=== PATIENT | male | born 1925 | race Caucasian/White ===

== ENCOUNTER 2016-07-04 16:51 | Emergency (ER) | payer MEDICARE, OTHER ==
[2016-07-04] MEDS ORDERED: methylPREDNISolone Sodium Succinate 125 MG/2 ML SDV IVPUSH ONE (16:54)
[2016-07-04] MEDS ORDERED: Albuterol 0.083% 2.5 MG/3 ML Neb Soln NEB ONE (16:54)
[2016-07-04] MEDS ORDERED: Sodium Chloride 0.9% 10 ML Syringe FLUSH PRN (16:56)
--- NOTE | 2016-07-04 17:24 | EDM.PDOC ---
ED HISTORY OF PRESENT ILLNESS - General Chief Complaint: Respiratory Problem Stated Complaint: sob, chest cold, fever Time Seen by Provider: 07/04/16 17:00 Source of Information: Reports: Patient History Limitations: Reports: No limitations - History of Present Illness INITIAL COMMENTS - FREE TEXT/NARRATIVE: The patient is brought in by from [facility] with their ground transportation with complaint of cough and oxygen desaturation that has increased over the past 2 days. The patient states his cough has increased over the past 2 days and he admits to mild chills as well. He denies fever and lethargy. He denies chest pain and shortness of breath currently but admits to chronic exertional dyspnea. He has a significant cardiac history with CABG more than 20 years ago in [place] and EDELMIRA 5-6 years ago at in [place]. He also has a history of Diabetes, Atrial Fibrillation, Pacemaker for SSS, HTN, and HLD. He also smoked for more than 20 years and quit in the . - Related Data Allergies/ADRs: Allergies Allergy/AdvReac Type Severity Reaction Status Date / Time NSAIDS (Non-Steroidal Allergy Cannot Verified 04/16/16 07:42 Anti-Inflamma Remember sodium phosphate,dibasic Allergy Cannot Verified 04/16/16 07:42 [From Fleet Enema] Remember sodium phosphate,monobasic Allergy Cannot Verified 04/16/16 07:42 [From Fleet Enema] Remember venom-honey bee Allergy Anaphylactic Verified 04/16/16 07:42 [bee venom (honey bee)] Shock CT Dye Allergy Renal Uncoded 04/16/16 07:42 Failure Home Meds: Home Meds Allopurinol [Zyloprim] 100 mg PO DAILY@0600 07/09/13 [History] Carboxymethylcellulos/Glycerin [Refresh Optive] 1 drop EYEBOTH QID 07/09/13 [ History] Finasteride [Proscar] 5 mg PO DAILY@0600 07/09/13 [History] Gabapentin [Neurontin] 300 mg PO BEDTIME 07/09/13 [History] Hydrocodone/Acetaminophen [Hydrocodone-Acetaminophen 5-325] 1 tab PO Q4HR PRN [History] Metolazone 2.5 mg PO Q3D 07/09/13 [History] Metoprolol Tartrate 25 mg PO BID 07/09/13 [History] Nitroglycerin [Nitrostat] 0.4 mg SL ASDIRECTED PRN 07/09/13 [History] Potassium Chloride [Klor-Con M20] 20 meq PO BID 07/09/13 [History] Simvastatin [Zocor] 20 mg PO BEDTIME 07/09/13 [History] lamoTRIgine [LaMICtal] 75 mg PO BID 07/09/13 [History] EPINEPHrine [Epipen] 0.3 mg IM ASDIRECTED PRN 10/18/13 [History] Omeprazole [Prilosec] 20 mg PO BID@0600,1630 10/18/13 [History] Amitriptyline [Elavil] 25 mg PO BEDTIME 07/12/15 [History] Aspirin [Halfprin] 81 mg PO DAILY@0600 07/12/15 [History] Carboxymethylcellulose/Lytes [Chance-Stir Oral [place]] 1 sprays MUCMEM Q2HR PRN [History] Cholecalciferol (Vitamin D3) [Vitamin D3] 1,000 unit PO DAILY@0607/12/15 [ History] Ipratropium/Albuterol Sulfate [Iprat-Albut 0.5-3(2.5) MG/3 ML] 3 ml IH Q4H PRN 07/12/15 [History] Lisinopril 20 mg PO DAILY@0607/12/15 [History] Magnesium Oxide 420 mg PO DAILY@0607/12/15 [History] Tamsulosin HCl [Flomax] 0.4 mg PO BEDTIME 07/12/15 [History] amLODIPine Besylate [Norvasc] 2.5 mg PO BEDTIME 07/12/15 [History] Donepezil HCl [Aricept] 10 mg PO BEDTIME 09/26/15 [History] Insulin Detemir [Levemir] 28 units SUBCUT DAILY 09/26/15 [History] Isosorbide Mononitrate [Imdur] 30 mg PO DAILY@0600 12/11/15 [History] Polyethylene Glycol 3350 [MiraLAX] 17 gm PO DAILY PRN 12/11/15 [History] Docusate Sodium [Colace] 100 mg PO DAILY@0600 04/16/16 [History] Furosemide [Lasix] 20 mg PO BIDDIURETIC #14 tablet 04/16/16 [Rx] Gabapentin [Neurontin] 400 mg PO DAILY@0600 04/16/16 [History] Ipratropium/Albuterol Sulfate [Iprat-Albut 0.5-3(2.5) mg/3 ml] 1 vial INH DAILY@ 0600 04/16/16 [History] Levothyroxine Sodium [Synthroid] 75 mcg PO ACBREAKFAST #60 tab 04/16/16 [Rx] Methyl Salicylate/Menthol [Thera-Gesic Analgesic] 85 gm TP QID PRN 04/16/16 [ History] Potassium Chloride 20 meq PO BID #14 tablet.er 04/16/16 [Rx] Past Medical History HEENT History: Reports: Cataract, Hard of hearing, Impaired vision, Macular degeneration, Other (see below) Other HEENT History: Dry eye, severe bilateral presbycusis with hearing aids not in place today and previous suboptimal therapy, diabetic retinopathy with macular edema and history of retinal hemorrhages, bilateral macular degeneration , wears glasses Cardiovascular History: Reports: Afib, Arrhythmia, Bypass, CAD, Heart Failure, Heart murmur, High cholesterol, Hypertension, Pacemaker, PVD, Syncope, Other ( see below) Other Cardiovascular History: Sick sinus syndrome/Sinoatrial dysfunction requiring pacemaker therapy with previous history junctional tachycardia, Atrial Flutter, and ventricular tachycardia, aortic valve stenosis, 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 chronic d-dimer elevation, recurrent syncope Respiratory History: Reports: COPD, PE, Sleep apnea, Other (see below) Other Respiratory History: Current CPAP therapy Gastrointestinal History: Reports: Chronic constipation, Colon polyp, GERD, GI bleed, PUD, Other (see below) Other Gastrointestinal History: Hepatosplenomegaly, benign hepatic hemangiomas Genitourinary History: Reports: BPH, Chronic renal insuffiency, Diabetic nephropathy, Retention, urinary, Urinary incontinence, Other (see below) Other Genitourinary History: Elevated PSA Musculoskeletal History: Reports: Back pain, chronic, Fracture, Gout, Neck pain , chronic, Osteoarthritis, Osteoporosis, Other (see below) Other Musculoskeletal History: Scoliosis, spinal stenosis Neurological History: Reports: Neuropathy, diabetic, Neuropathy, peripheral, Seizure Psychiatric History: Reports: Addiction, Psychosis, Other (see below) Other Psychiatric History: Chronic narcotic use Endocrine/Metabolic History: Reports: Diabetes, type II, Hypothyroidism, IDDM, Obesity/BMI 30+, Vitamin D deficiency, Other (see below) Other Endocrine/Metabolic History: Hyperprolactinemia, hypomagnesemia Dermatologic History: Reports: Other (see below) Other Dermatologic History: Recurrent tinea - Past Surgical History HEENT Surgical History: Reports: Cataract surgery, Oral surgery, Other (see below) Other HEENT Surgeries/Procedures: Bilateral cataract surgery, complete teeth extraction Cardiovascular Surgical History: Reports: Coronary artery bypass, Pacer Musculoskeletal Surgical History: Reports: Hip replacement, Knee replacement, Other (see below) Other Musculoskeletal Surgeries/Procedures:: Bilateral TKA, left hip TEP - Past Imaging History Past Imaging History: Reports: CAT scan (Temporal bone on 01/02/16), Ultrasound (Abdominal complete ultrasound on 08/29/15), Venous doppler (Left leg on 01/11/15 ) Social & Family History - Family History Family Medical History: Unobtainable - Tobacco Use Smoking Status *Q: Never Smoker Years of Tobacco use: 20 Packs/Tins Daily: 1 Used Tobacco, but Quit: Yes Month Tobacco Last Used: 1962 Second Hand Smoke Exposure: No - Caffeine Use Caffeine Use: Reports: Coffee - Alcohol Use Days Per Week of Alcohol Use: 0 - Recreational Drug Use Recreational Drug Use: No - Living Situation & Occupation Living situation: Reports: extended care facility ([facility] in [facility]) Occupation: retired ED ROS GENERAL - Review of Systems Review Of Systems: See Below Constitutional: Reports: chills HEENT: Reports: No symptoms Respiratory: Reports: Cough. Denies: Shortness of Breath, Wheezing, Pleuritic Chest Pain, Sputum, Hemoptysis Cardiovascular: Reports: No symptoms, Dyspnea on exertion (Chronic. No acute change.). Denies: Chest pain, Edema, Lightheadedness, Orthopnea, Palpitations, Syncope Endocrine: Reports: no symptoms GI/Abdominal: Reports: No symptoms : Reports: no symptoms Musculoskeletal: Reports: no symptoms Skin: Reports: no symptoms Neurological: Reports: No Symptoms Psychiatric: Reports: No symptoms Hematologic/Lymphatic: Reports: no symptoms Immunologic: Reports: no symptoms ED EXAM, GENERAL - Physical Exam Exam: See Below Exam Limited By: No limitations General Appearance: alert, WD/WN, no apparent distress Eye Exam: bilateral eye: EOMI, normal fundi, normal inspection, PERRL Ears: normal external exam, normal canal, hearing grossly normal, normal TMs Ear Exam: bilateral ear: auricle normal, canal normal, TM normal Nose: normal inspection, normal mucosa, no blood Throat/Mouth: Normal inspection, Normal lips, Normal teeth, Normal gums, Normal oropharynx Head: atraumatic, normocephalic Neck: normal inspection, supple, non-tender, full range of motion, other (No nuchal rigidity.). No: lymphadenopathy (L), lymphadenopathy (R), tender lateral , tender midline Respiratory/Chest: no respiratory distress, no accessory muscle use, chest non- tender Cardiovascular: normal peripheral pulses, regular rate, rhythm, no edema, no gallop, no rub, systolic murmur (3/6 systolic murmur loudest at RU sternal border.) Peripheral Pulses: 2+: radial (L), radial (R), dorsalis pedis (L), dorsalis pedis (R) GI/Abdominal: normal bowel sounds, soft, non tender, no organomegaly, no distention Back Exam: normal inspection, full range of motion. No: CVA tenderness (L), CVA tenderness (R), decreased range of motion, muscle spasm, paraspinal tenderness, vertebral tenderness Extremities: normal inspection, normal range of motion, non-tender, no pedal edema, normal capillary refill Neurological: alert, oriented, CN II-XII intact, normal cognition, normal gait, normal reflexes, no motor/sensory deficits, other (No pronator drift of arms. No dysmetria. No clonus or spasticity. Babinski absent bilaterally.) Psychiatric: normal affect, normal mood Skin Exam: Warm, Dry, Intact, Normal color, No rash Lymphatic: no adenopathy EKG INTERPRETATION EKG Interpretation Comments: EKG shows normal sinus rhythm with rate of 70, RBBB with QRS of 144, and inverted T waves in inferior and lateral leads. No ST elevation. Course - Vital Signs Last Recorded V/S: Last Vital Signs Temp 36.8 C 07/04/16 16:51 Pulse 70 07/04/16 18:51 Resp 20 07/04/16 18:51 BP 120/64 07/04/16 18:51 Pulse Ox 98 07/04/16 18:51 - Orders/Labs/Meds Orders: Active Orders 24 hr Category Date Time Status EKG Documentation Completion [RC] STAT Care 07/04/16 18:18 Active Peripheral IV Care [RC] . DIRECTED Care 07/04/16 16:56 Active RT Aerosol Therapy [RC] ASDIRECTED Care 07/04/16 16:54 Active Chest 2V [CR] Stat Exams 07/04/16 16:53 Taken CULTURE BLOOD [BC] Stat Lab 07/04/16 17:08 Received CULTURE BLOOD [BC] Stat Lab 07/04/16 18:25 Received UA W/MICROSCOPIC [URIN] Stat Lab 07/04/16 16:53 Uncollected Sodium Chloride 0.9% [Saline Flush] Med 07/04/16 16:56 Active 10 ml FLUSH ASDIRECTED PRN Blood Culture x2 Reflex Set [OM.PC] Stat Oth 07/04/16 18:17 Ordered Peripheral IV Insertion Adult [OM.PC] Routine Oth 07/04/16 16:56 Ordered Medication Orders Sodium Chloride (Saline Flush) 10 ml FLUSH ASDIRECTED PRN PRN Reason: Keep Vein Open Labs: Laboratory Tests 07/04/16 07/04/16 07/04/16 Range/Units 07:08 17:14 17:14 WBC 12.6 H (4.0-10.2) K/uL RBC 4.93 (4.33-5.41) M/uL Hgb 14.2 (13.1-16.8) g/dL Hct 42.4 (39.0-49.0) % MCV 86.0 D (84.0-98.0) fL MCH 28.8 (28.2-33.3) pg MCHC 33.5 (31.7-36.0) g/dL RDW 14.5 H (11.2-14.1) % Plt Count 124 L (150-350) K/uL Neut % (Auto) 87.2 H (45.0-80.0) % Lymph % (Auto) 6.9 L (10.0-50.0) % [place] % (Auto) 5.2 (2.0-14.0) % Eos % (Auto) 0.2 (0.0-5.0) % Baso % (Auto) 0.5 (0.0-2.0) % Neut # (Auto) 10.95 H (1.40-7.00) K/uL Lymph # (Auto) 0.87 (0.50-3.50) K/uL [place] # (Auto) 0.65 (0.00-1.00) K/uL Eos # (Auto) 0.03 (0.00-0.50) K/uL Baso # (Auto) 0.06 (0.00-0.20) K/uL PT (9.8-11.7) SEC INR APTT (23.5-30.0) SEC Sodium 140 (136-145) mmol/L Potassium 3.9 (3.5-5.1) mmol/L Chloride 103 (98-107) mmol/L Carbon Dioxide 28.7 (21.0-32.0) mmol/L BUN 40 H (7-18) mg/dL Creatinine 2.07 H (0.51-1.17) mg/dL Est Cr Clr Drug Dosing 25.47 mL/min Estimated GFR (MDRD) 30 mL/min Glucose 222 H (74-106) mg/dL Calcium 8.0 L (8.5-10.1) mg/dL Total Bilirubin 0.6 (0.2-1.0) mg/dL AST 18 (15-37) U/L ALT 22 (12-78) U/L Alkaline Phosphatase 95 (46-116) IU/L Creatine Kinase 44 (26-308) U/L Creatine Kinase Index 3.0 H* (0.0-2.5) % CK-MB (CK-2) 1.30 (0.00-3.60) ng/mL Troponin I 0.157 H* (0.000-0.056) ng/mL C-Reactive Protein 3.4 H (<=0.9) mg/dL Jsv-M-Retqtnvsugu Pept (0-125) pg/mL Total Protein 6.1 L (6.4-8.2) g/dL Albumin 2.6 L (3.4-5.0) g/dL 07/04/16 07/04/16 Range/Units 18:25 18:25 WBC (4.0-10.2) K/uL RBC (4.33-5.41) M/uL Hgb (13.1-16.8) g/dL Hct (39.0-49.0) % MCV (84.0-98.0) fL MCH (28.2-33.3) pg MCHC (31.7-36.0) g/dL RDW (11.2-14.1) % Plt Count (150-350) K/uL Neut % (Auto) (45.0-80.0) % Lymph % (Auto) (10.0-50.0) % [place] % (Auto) (2.0-14.0) % Eos % (Auto) (0.0-5.0) % Baso % (Auto) (0.0-2.0) % Neut # (Auto) (1.40-7.00) K/uL Lymph # (Auto) (0.50-3.50) K/uL [place] # (Auto) (0.00-1.00) K/uL Eos # (Auto) (0.00-0.50) K/uL Baso # (Auto) (0.00-0.20) K/uL PT 10.5 (9.8-11.7) SEC INR 1.0 APTT 22.7 L (23.5-30.0) SEC Sodium (136-145) mmol/L Potassium (3.5-5.1) mmol/L Chloride (98-107) mmol/L Carbon Dioxide (21.0-32.0) mmol/L BUN (7-18) mg/dL Creatinine (0.51-1.17) mg/dL Est Cr Clr Drug Dosing mL/min Estimated GFR (MDRD) mL/min Glucose (74-106) mg/dL Calcium (8.5-10.1) mg/dL Total Bilirubin (0.2-1.0) mg/dL AST (15-37) U/L ALT (12-78) U/L Alkaline Phosphatase (46-116) IU/L Creatine Kinase (26-308) U/L Creatine Kinase Index (0.0-2.5) % CK-MB (CK-2) (0.00-3.60) ng/mL Troponin I (0.000-0.056) ng/mL C-Reactive Protein (<=0.9) mg/dL Uoh-E-Juqsrtlbhzq Pept 3652 H (0-125) pg/mL Total Protein (6.4-8.2) g/dL Albumin (3.4-5.0) g/dL Meds: Medications Generic Name Dose Route Start Last Admin Trade Name Freq PRN Reason Stop Dose Admin Sodium Chloride 10 ml 07/04/16 16:56 Saline Flush FLUSH ASDIRECTED PRN Keep Vein Open Discontinued Medications Generic Name Dose Route Start Last Admin Trade Name Freq PRN Reason Stop Dose Admin Albuterol 2.5 mg 07/04/16 16:54 07/04/16 17:28 Proventil Neb Soln NEB 07/04/16 16:55 2.5 mg ONETIME ONE Administration Aspirin 324 mg 07/04/16 18:14 07/04/16 18:22 Aspirin PO 07/04/16 18:15 324 mg ONETIME ONE Administration Atorvastatin Calcium 80 mg 07/04/16 18:19 07/04/16 18:42 Lipitor PO 07/04/16 18:20 80 mg ONETIME ONE Administration Enoxaparin Sodium 100 mg 07/04/16 18:30 07/04/16 18:45 Lovenox SUBCUT 07/04/16 18:31 100 mg ONETIME ONE Administration Furosemide 40 mg 07/04/16 18:16 07/04/16 18:23 Lasix IVPUSH 07/04/16 18:17 40 mg NOW ONE Administration Levofloxacin/Dextrose 500 mg/ 100 mls @ 100 mls/hr 07/04/16 18:17 07/04/16 18 :53 Premix IV 07/04/16 19:16 Not Given ONETIME ONE Methylprednisolone Sodium Succinate 125 mg 07/04/16 16:54 07/04/16 17:29 Solu-Medrol IVPUSH 07/04/16 16:55 125 mg ONETIME ONE Administration Departure - Departure Time of Disposition: 19:30 Disposition: DC/Tfer to Acute Hospital 02 Clinical Impression: Neutrophilic leukocytosis, Elevated BUN, Elevated serum creatinine, Troponin level elevated RLL pneumonia Qualifiers: Pneumonia type: due to unspecified organism Qualified Code(s): J18.1 - Lobar pneumonia, unspecified organism Referrals: Lanette Landeros MD [Primary Care Provider] - Forms: ED Department Discharge - My Orders Last 24 Hours: My Active Orders 07/04/16 16:53 Chest 2V [CR] Stat UA W/MICROSCOPIC [URIN] Stat 07/04/16 16:54 RT Aerosol Therapy [RC] ASDIRECTED 07/04/16 16:56 Peripheral IV Care [RC] . DIRECTED Sodium Chloride 0.9% [Saline Flush] 10 ml FLUSH ASDIRECTED PRN Peripheral IV Insertion Adult [OM.PC] Routine 07/04/16 17:08 CULTURE BLOOD [BC] Stat 07/04/16 18:17 Blood Culture x2 Reflex Set [OM.PC] Stat 07/04/16 18:18 EKG Documentation Completion [RC] STAT 07/04/16 18:25 CULTURE BLOOD [BC] Stat - Assessment/Plan Last 24 Hours: My Active Orders 07/04/16 16:53 Chest 2V [CR] Stat UA W/MICROSCOPIC [URIN] Stat 07/04/16 16:54 RT Aerosol Therapy [RC] ASDIRECTED 07/04/16 16:56 Peripheral IV Care [RC] . DIRECTED Sodium Chloride 0.9% [Saline Flush] 10 ml FLUSH ASDIRECTED PRN Peripheral IV Insertion Adult [OM.PC] Routine 07/04/16 17:08 CULTURE BLOOD [BC] Stat 07/04/16 18:17 Blood Culture x2 Reflex Set [OM.PC] Stat 07/04/16 18:18 EKG Documentation Completion [RC] STAT 07/04/16 18:25 CULTURE BLOOD [BC] Stat Assessment:: RLL pneumonia. Leukocytosis with neutrophilia. Oxygen desaturation. Elevated creatinine. Elevated BUN. Elevated troponin. Plan: 1. Oxygen 4 L per [place]. 2. Albuterol nebulizer 2.5 mg in ER with improved breath sounds. 3. Solumedrol 125 mg IV in ER. 4. Blood culture x 2 in ER. 5. Saline lock IV. 6. Aspirin 324 mg PO when elevated troponin discovered in ER. 7. Lipitor 80 mg PO in ER. 8. Lovenox 100 mg SQ in ER. 9. Levaquin 500 mg IV in ER. 10. Called to discuss with hospitalist Dr. Ramos at [facility] who did not feel transfer necessary and certified pharmacy tech Dr. Ramirez who also did not feel transfer necessary. 11. Discussed with hospitalist Dr. Vallejo at [facility] who agrees to accept as transfer. 12. Transport by EMS ground ambulance with oxygen at 4L per [place], telemetry, and pulse oximetry.
[2016-07-04] MEDS ORDERED: Aspirin 81 MG Tab.Chew PO ONE (18:14)
[2016-07-04] MEDS ORDERED: Furosemide 40 MG/4 ML VIAL IVPUSH ONE (18:16)
[2016-07-04] MEDS ORDERED: Levofloxacin/Dextrose 5%-Water 500 MG in Premix Bag 1 BAG IV ONE (18:17)
[2016-07-04] MEDS ORDERED: atorvaSTATin 40 MG Tab PO ONE (18:19)
[2016-07-04] MEDS ORDERED: Enoxaparin 100 MG/1 ML Syringe SUBCUT ONE (18:30)
[2016-07-04] MEDS ORDERED: Levofloxacin/Dextrose 5%-Water 100 ML IV ONE (19:49)
[2016-07-05 00:39] VITALS: BP 133/65
== END 2016-07-04 20:30 ==
LOC: LL.ED 16:51
DX: J18.1 Lobar pneumonia, unspecified organism (principal); D72.828 Other elevated white blood cell count; R79.89 Other specified abnormal findings of blood chemistry; I48.91 Unspecified atrial fibrillation; I25.10 Atherosclerotic heart disease of native coronary artery without angina pectoris; I11.0 Hypertensive heart disease with heart failure; I50.9 Heart failure, unspecified; J44.9 Chronic obstructive pulmonary disease, unspecified; E78.00 Pure hypercholesterolemia, unspecified; R68.83 Chills (without fever); Z88.6 Allergy status to analgesic agent; Z88.8 Allergy status to other drugs, medicaments and biological substances; Z96.649 Presence of unspecified artificial hip joint; Z96.659 Presence of unspecified artificial knee joint
CPT/HCPCS: 36415; 71020; 80053; 82550; 82553; 83880; 84484; 85025; 85610; 85730; 86140; 87040; 94640; 96365; 96372; 96375; 99285; A9270; J1650; J1940; J1956; J2930; J7620; 99284